=== PATIENT | male | born 1965 | race Two or more races ===

== ENCOUNTER 2022-03-09 06:09 | Day surgery (SDC) | payer OTHER ==
[~2022-03-09] VITALS: Ht 175.3 cm; Wt 86.2 kg
[~2022-03-09 06:09] MED LIST: AMLOD PO; GLUMETZA500 MG PO; HYDRALAZINE HCL50 MG PO; PRAVASTATIN SOD40 MG PO; SYNTHROID88 MCG PO; ZYRTEC10 M3 PO
[2022-03-09] MEDS ORDERED: PERCOCET 5-3251 EACH PO (13:44)
[2022-03-09] MEDS ORDERED: POLY119PG PO (13:45)
[2022-03-09] MEDS ORDERED: NEURONTIN600 M1 PO (13:45)
== END 2022-03-09 15:05 | disposition home or self-care (01) ==
LOC: CIR.AMB 06:09
PROVIDERS: ATTEND Surgery
DX: K40.20 Bilateral inguinal hernia, without obstruction or gangrene, not specified as recurrent (principal); Z88.0 Allergy status to penicillin; Z86.16 Personal history of COVID-19; E03.9 Hypothyroidism, unspecified; K21.9 Gastro-esophageal reflux disease without esophagitis; Z79.84 Long term (current) use of oral hypoglycemic drugs
CPT/HCPCS: 49650; C1781